=== PATIENT | male | born 1955 | race Caucasian/White ===

== ENCOUNTER → 2021-08-13 | Outpatient (CLI) | payer OTHER ==
[~2021-08-13] MED LIST: BISOPROLOL-HCT1 EAC2 PO; CO-ENZYME Q-1010 MG PO; COZAAR 50 MG TA50 M1 PO; DILTIAZEM ER120 MG PO; ELIQUIS5 MG PO; EZETIMIBE10 MG PO; GLUCOSAMINE &1 EACH PO; MULTI VITAMIN1 EACH PO; OMEPRAZOLE 20 M20 M1 PO; ROSUVASTATIN CA20 MG PO
== END ==
LOC: PAC 15:45 → LAB 15:45 → GI 08-15 06:33
PROVIDERS: ATTEND Specialist
DX: Z01.812 Encounter for preprocedural laboratory examination (principal); Z20.822 Contact with and (suspected) exposure to COVID-19

== ENCOUNTER → 2021-08-15 | Outpatient (CLI) | payer OTHER ==
[~2021-08-15] VITALS: Ht 193 cm; Wt 105.2 kg
--- NOTE | 2021-08-19 11:07 | PATH ---
[facility] [address] [place] [address] PATHOLOGY RPT PROCEDURE Name: MALCOM HAWKINS Room #: REG [facility] MLyla.#: [id number] Admission: 08/15/21 Date of : 53 Discharge: Report #: [id number] Path Case #: [id number] [facility] Accession Number: [id number] . 01 Material submitted: . colon - TRANSVERSE COLON POLYP BIOPSY. Modifiers: transverse . 01 Clinical history: . COLONOSCOPY [facility] COLON POLYP, INTERNAL HEMORRHOIDS . 02 Diagnosis: Polyp, transverse colon polyp, endoscopic biopsy: - Tubular adenoma. - Negative for high-grade dysplasia. (IUV:pit; 08/18/2021) QTP 08/18/2021 1410 Local . 02 Electronically signed: . Sandra Limon MD, Pathologist NPI- [id number] . 01 Gross description: . The specimen is received in formalin, labeled "Malcom Hawkins, transverse colon polyp BX". Received are 2 segments of pale mattson tissue ranging in size from 0.2 cm to 0.4 cm in maximum dimensions. The specimen is submitted entirely in cassette A1.([facility]; 08/15/2021) [facility] 08/15/2021 1838 Local . 02 Pathologist provided ICD-10: D12.3 . 02 CPT . 524849 Specimen Comment: A courtesy copy of this report has been sent to [phone], [phone] Specimen Comment: [id number] Specimen Comment: Report sent to / DR BAILEY Specimen Comment: A duplicate report has been generated due to demographic updates. Performed at: 01 [facility] [address] [facility] [address], [place] [id number] MD Tyron Armstrong MD Phone: [phone] Performed at: 02 [facility] [address] [place] [address] PATHOLOGY RPT PROCEDURE Name: MALCOM HAWKINS Room #: REG [facility].#: [id number] Admission: 08/15/21 Date of : 53 Discharge: Report #: [id number] Path Case #: [id number] [address] [place] [id number] MD Sandra Limon MD Phone: [phone]
--- NOTE | 2021-08-20 08:12 | P ---
[facility] [place] [address] PROCEDURE REPORT Name: MALCOM HAWKINS Room #: REG [facility].#: [id number] Admission: 08/15/21 Attend Phys: Jacek Starks Discharge: Date of : 53 Report #: [id number] THIS REPORT FOR: cc: Malcom Montilla MD, John L. MD McElhinney, Christian C. MD ~ cc: Malcom Montilla MD DATE OF SERVICE: 08/15/2021 PROCEDURE PERFORMED: Colonoscopy with biopsies. HISTORY OF PRESENT ILLNESS: The patient is a 66-year-old male who presents today for a routine colonoscopy. Last colonoscopy was 11 years ago, normal. He denies any symptoms, no family history of colon cancer. DESCRIPTION OF PROCEDURE: The risks and benefits of the procedure were explained to the patient, those risks including but not limited to bleeding, perforation and the risk of sedation. He understood these risks and gave informed consent. Sedation was given using propofol per anesthesia. Next, a digital rectal exam was initially performed, which was normal. Next, using a standard Olympus colonoscope, the scope was placed in the patient's anus and advanced under direct vision to the cecum. The overall prep was excellent. The cecum and ileocecal valve were normal in appearance. In the ascending colon, a 3 mm sessile polyp was noted. This was removed with cold forceps, otherwise normal. The transverse, descending and sigmoid colon were normal. The rectal mucosa was normal. On retroflexion, small nonbleeding internal hemorrhoids were noted. The scope was then withdrawn and the procedure terminated. The patient tolerated the procedure well. IMPRESSION: 1. Small colonic polyp. 2. Small internal hemorrhoids. 3. Otherwise, normal colonoscopy. RECOMMENDATIONS: 1. Await biopsy results. 2. If polyp is hyperplastic, repeat in 10 years; if adenomatous polyp, repeat in 5 years. Thank you for allowing me to participate in his care. <ELECTRONICALLY SIGNED> By: Jacek Bowens MD 08/20/21 0812 0833 1023 Jacek Bowens MD /nt
== END | disposition home or self-care (01) ==
LOC: GI → LAB → GI 06-20 14:47 → LAB 08-13 09:56 → GI 07:35
PROVIDERS: Student in an Organized Health Care Education/Training Program; ATTEND Specialist
DX: Z12.11 Encounter for screening for malignant neoplasm of colon (principal); D12.3 Benign neoplasm of transverse colon; K64.8 Other hemorrhoids; I10 Essential (primary) hypertension; E78.5 Hyperlipidemia, unspecified; I48.91 Unspecified atrial fibrillation; G47.30 Sleep apnea, unspecified; Z98.890 Other specified postprocedural states; Z79.899 Other long term (current) drug therapy; Z20.822 Contact with and (suspected) exposure to COVID-19; Z79.01 Long term (current) use of anticoagulants
CPT/HCPCS: 62110; 62900